=== PATIENT | female | born 1985 | race Caucasian/White ===

== ENCOUNTER 2019-06-03 11:37 | Emergency (ER) | payer MEDICAID, SELFPAY ==
[2019-06-03 11:38] VITALS: BP 116/71; PULSE 84; RESP 16; TEMP 36.8; O2SAT 99; BMI 23.3
--- NOTE | 2019-06-03 11:59 | ED.DCSUM_ITS ---
History of Present Illness <SinaParmjit - Last Filed: 06/03/19 13:43> Informant: Patient Onset: Yesterday Context: Sudden Onset Chronic pain exacerbated by: lifting Injury: Lifting Timing: Continuous Quality: Sharp Location: Thoracic Current Severity: Severe Maximum Severity: Severe Worsened by: improves with: Movement, Ambulation, Bending Relieved by: Nothing Associated Symptoms: - - Denies associated symptoms Narrative: 34-year-old female presents with thoracic back pain. Yesterday the patient was moving her bed lifted up felt sharp pain in her left thoracic back. It has been constant. Is worse with movement. Better with rest. Using icy hot without relief. It does not radiate. She has no numbness tingling or weakness of the upper or lower extremities. She is not lightheaded or dizzy. She denies trauma. She denies chest pain or shortness of breath. She denies abdominal pain nausea or vomiting. Urinating normally. Rest review of systems are negative. Denies IV drug abuse or constitutional symptoms. Prior similar symptoms: Yes, With Prior Back Pain Recent Illness/Hospitalization: No <Ruslan Tejada - Last Filed: 06/03/19 13:52> Chief Complaint: Back Past Medical History <AndinoParmjit - Last Filed: 06/03/19 13:43> Prior records reviewed: Yes Past Medical History: None Surgical History: no surgical history Lives: With Family Smoking Status: Former smoker Alcohol: Occasional Drugs: None <Ruslan Tejada - Last Filed: 06/03/19 13:52> - Allergies and Home Meds Allergies/Adverse Reactions: Allergies No Known Allergies Allergy (Verified 06/03/19 11:39) Primary Care Physician: Shiv Gilbert MD [Primary Care Provider] - Review of Systems All systems negative except as indicated General: Denies: Chills, Fever Musculoskeletal: Reports: Back pain <Ruslan Tejada - Last Filed: 06/03/19 13:52> Physical Exam Vital Signs/Narrative: Vital Signs Temp Pulse Resp BP Pulse Ox 06/03/19 13:32 63 18 114/78 100 06/03/19 11:38 98.2 F 84 16 116/71 99 <SinaParmjit - Last Filed: 06/03/19 13:43> Vital Signs/Narrative: Vital Signs Temp Pulse Resp BP Pulse Ox 06/03/19 11:38 98.2 F 84 16 116/71 99 Inital Vital Signs reviewed: Yes General: Well nourished, Well developed Head: Normocephalic, Atraumatic Eyes: Perrl, EOMI ENT: Moist mucous membranes Neck: Supple, Nontender Cardiovascular: Regular rate, Regular rhythm Respiratory: No distress, CTA bilaterally, Chest nontender Abdomen: Soft, Nontender, Nondistended, Normal bowel sounds, No masses Back: Normal Inspection, Paraspinal Tenderness, Negative SLR - Right, Negative SLR - Left. Negative for: Spinal tenderness, CVA tenderness Extremeties: Nontender, No edema Skin: Normal color, No rash Neuro: Alert, Oriented, Normal Strength, Normal Sensation, Normal DTR, Normal Gait <Ruslan Tejada - Last Filed: 06/03/19 13:52> Diagnostic/Tx/Re-eval - Medical Decision Making Evaluate this patient with our physician assistant professor of surgery. I went back to evaluate the patient she had left prior to being discharged. So I was unable to do a physical exam on this patient. <Parmjit Andino - Last Filed: 06/03/19 13:43> ED Disposition <Parmjit Andino - Last Filed: 06/03/19 13:43> <Ruslan Tejada - Last Filed: 06/03/19 13:52> - Plan for ED Patient: Disposition: Home or Assisted Living Diagnosis: Thoracic myofascial strain Instructions: BACK PAIN (Acute or Chronic) Prescriptions: cycloBENZAPRine HCl [Flexeril] 10 mg PO TID PRN #20 tab PRN Reason: Muscle Spasm Prescription Printed Naproxen [Naprosyn] 500 mg PO BID #20 tab Prescription Printed Referrals: Shiv Gilbert MD [Primary Care Provider] -
[2019-06-03] MEDS: Naproxen 500 MG Tablet PO (12:23)
[2019-06-03 13:32] VITALS: BP 114/78; PULSE 63; RESP 18; O2SAT 100
== END 2019-06-03 13:33 | disposition home or self-care (01) ==
PROVIDERS: Emergency Provider Physician Assistant Medical; Family Provider Family Medicine; PCP Family Medicine
DX: S29.012A Strain of muscle and tendon of back wall of thorax, initial encounter (principal); X58.XXXA Exposure to other specified factors, initial encounter; Z87.891 Personal history of nicotine dependence
CPT/HCPCS: 99283

== ENCOUNTER 2019-10-14 10:21 | Emergency (ER) | payer MEDICAID, SELFPAY ==
[2019-10-14 10:22] VITALS: BP 124/86; PULSE 73; RESP 17; TEMP 36.5; O2SAT 100; BMI 23.7
--- NOTE | 2019-10-14 10:59 | ED.VISSUMM ---
- ER Visit Summary Date of Service: 10/14/19 Chief Complaint: Head injury History of Present Illness: The patient is a 34 F who presents with a head injury that occurred yesterday. Patient states she hit her head on the trunk of her car. Patient thinks she had a brief loss of consciousness. Patient states her headache is worse today. Patient denies any paresthesias or weakness. Patient states her pain is over the frontal area of the scalp. Patient admits to nausea but denies any vomiting. Patient denies any visual changes. Patient denies any back pain. Patient admits to some mild pain on the left side of her neck. Physical Examination: Vital signs are stable. Patient is afebrile. Patient is in no acute distress. Cranial nerves II through XII are intact. Strength is 5/5 bilateral knee upper and lower extremities. There are no sensory deficits noted. Patient was able to heel and toe walk without difficulty. Pupils are equal, round, and reactive to light bilaterally. Extraocular muscles are intact. Funduscopic exam is benign. Oral mucosa is pink and moist. Neck is supple. Trachea is midline. There is no JVD. Heart was regular rate and rhythm. Lungs are clear and equal bilaterally. Abdomen is soft and nontender. Musculoskeletal exam revealed mild tenderness over the frontal area of the scalp. There is no bony crepitance or step-off. There is no edema or ecchymosis. Emergency Department Course and Treatment: Patient was advised that this is most likely a mild concussion. Patient was instructed to get plenty of rest. Patient was instructed drink plenty of fluids. Patient was instructed to take Tylenol or ibuprofen as needed for headaches. Patient was instructed to follow-up with a primary care physician in 5 to 7 days. Patient was given the name for the primary care physician hotel casino floorperson. Patient understood and was agreeable with the plan. All questions were answered. Disposition: Discharge home Impression: 1. Concussion This note was generated with [employer] dictation software. It may contain incorrect words, spelling, and punctuation that were not noted in review of the chart prior to signing ED Disposition - Plan for ED Patient: Disposition: Home or Assisted Living Diagnosis: Concussion Instructions: CONCUSSION, No Wake Up Referrals: Care Physician,No Primary [Primary Care Provider] - Mabel Cope MD [STAFF PHYSICIAN] - 5-7 Days
[2019-10-14] MEDS: Acetaminophen 325 MG Tablet 1000 MG PO (11:18)
== END 2019-10-14 11:21 | disposition home or self-care (01) ==
PROVIDERS: Emergency Provider Emergency Medicine
DX: S06.0X9A Concussion with loss of consciousness of unspecified duration, initial encounter (principal); W22.8XXA Striking against or struck by other objects, initial encounter; Y93.9 Activity, unspecified; Y92.89 Other specified places as the place of occurrence of the external cause; Y99.9 Unspecified external cause status
CPT/HCPCS: 99283

== ENCOUNTER 2020-01-24 09:12 | Emergency (ER) | payer MEDICAID, SELFPAY ==
[2020-01-24 09:13] VITALS: BP 142/91; PULSE 90; RESP 18; TEMP 35.7; O2SAT 92; BMI 24.7
--- NOTE | 2020-01-24 09:30 | EKG12_ITS ---
Test Reason : Blood Pressure : / mmHG Vent. Rate : 068 BPM Atrial Rate : 068 BPM P-R Int : 166 ms QRS Dur : 076 ms QT Int : 378 ms P-R-T Axes : 074 076 022 degrees QTc Int : 401 ms Normal sinus rhythm Nonspecific T wave abnormality Abnormal ECG Confirmed by RAYMOND MERRILL, LALI ([id number]), editor map ZAK BAKER ([id number]) on 01/29/2020 2:24:32 PM Referred By: NAVYA Confirmed By:MOSHE ANDRADE MD
--- NOTE | 2020-01-24 09:35 | RAD_ITS ---
STUDY: X-RAY CHEST REASON FOR EXAM: Female, 34 years old. Chest pain TECHNIQUE: Single AP portable view of the chest. COMPARISON: Comparison is made with prior examination dated November 24, 2015. FINDINGS: EKG electrodes are seen. The lungs are clear and expanded. Scattered calcified granulomas. There is no demonstrated pleural abnormality. Normal size heart. Normal mediastinum and tomasa. Normal visualized pulmonary arteries. Normal visualized aortic arch and descending thoracic aorta. Normal visualized thoracic spine. Normal visualized ribs, clavicles, and shoulders. There is no demonstrated abnormality of the visualized soft tissue structures of the upper abdomen. RAD/Chest 1 View (Portable) IMPRESSION: Normal x-ray examination of the chest. Electronically Signed: Jeet Olivas, at 10:09 EDT , Service support ,
--- NOTE | 2020-01-24 10:00 | ED.VIS.CHEST ---
History of Present Illness Informant: Patient Onset: Days - 4 days Activity at onset: Rest Timing: Continuous Quality: Sharp Location: Right Chest Current Severity: Moderate Maximum Severity: Moderate Worsened By: Movement of Arm, Movement of Torso, Palpation, Coughing Relieved By: Rest Associated Symptoms: Negative for: Nausea, Vomiting, Diaphoresis, Dyspnea, Cough, Fever, Lightheadedness, Acid Reflux, Palpitations Narrative: 34-year-old female who denies any significant past medical history presents to the emergency department with right-sided chest pain. Is been constant for 4 days. She states it started after she was playing around with her children and she has a sharp pain. It is worse with movement of her right upper extremity with palpation. She has not had shortness of breath cough hemoptysis, nausea vomiting, lightheadedness dizziness or diaphoresis. She has no risk factors for pulmonary embolism. She has not had trauma. She has been using Motrin and Tylenol with moderate improvement. Prior Similar Symptoms: No Recent Illness/Hospitalization: No CVD Risk Factors: Negative for: Hypertension, Diabetes, Hypercholesterolemia, Family History 1' </=55, Smoking PE Risk Factors: Negative for: Recent Travel/Surgery, Recenet Immobilization, Prior DVT or PE, Cancer, OCP + Smoking + >/=35 TAD Risk Factors: Negative for: Marfan's Syndrome, Hypertension, Family History <Ruslan Tejada - Last Filed: 01/24/20 10:18> <Hugh Witt - Last Filed: 01/24/20 10:27> Chief Complaint: Chest Other Past Medical History Prior records reviewed: Yes Past Medical History: None Surgical History: no surgical history Lives: With Family Smoking Status: Current some day smoker Alcohol: Occasional <Ruslan Tejada - Last Filed: 01/24/20 10:18> <Hugh Witt - Last Filed: 01/24/20 10:27> - Allergies and Home Meds Allergies/Adverse Reactions: Allergies No Known Allergies Allergy (Verified 01/24/20 09:15) Primary Care Physician: Mirtha Davis DO [STAFF PHYSICIAN] - Review of Systems All systems negative except as indicated General: Denies: Chills, Fever Eyes: Denies: Visual changes - bilaterally, Blurred Vision - bilaterally, Diplopia ENT: Denies: Bilateral ear pain, Rhinorrhea, Sore throat Cardiovascular: Reports: Chest pain. Denies: Palpitations, Heart racing Respiratory: Denies: Dyspnea, Cough, Sputum, Dyspnea on exertion, Orthopnea Gastrointestinal: Denies: Abdominal pain, Nausea, Vomiting, Diarrhea Genitourinary: Denies: Dysuria, Hematuria, Frequency Musculoskeletal: Denies: Myalgias, Arthralgias, Neck pain, Back pain, Swelling, Extremity Pain Skin: Denies: Rash, Abscess, Abrasions, Wounds Neurological: Denies: Headache, Weakness, Parasthesia, Numbness <Ruslan Tejada - Last Filed: 01/24/20 10:18> Physical Exam Vital Signs/Narrative: Vital Signs Temp Pulse Resp BP Pulse Ox 01/24/20 09:13 96.2 F L 90 18 142/91 H 92 Inital Vital Signs reviewed: Yes General: Well nourished, Well developed, No Acute Distress Head: Normocephalic, Atraumatic Eyes: Perrl, EOMI ENT: Moist mucous membranes Neck: Supple, Nontender, No lymphadenopathy, No JVD Cardiovascular: Regular rate, Regular rhythm, No murmurs Respiratory: No distress, CTA bilaterally, Chest tenderness Abdomen: Soft, Nontender, Nondistended, Normal bowel sounds, No masses Back: Nontender, Normal Inspection Extremities: Nontender, No edema Skin: Normal color, No rash, No Trauma Neurological: Alert, Oriented x3 Psychological: Normal affect, Normal Mood <Edith Tejadaony - Last Filed: 01/24/20 10:18> Vital Signs/Narrative: Vital Signs Temp Pulse Resp BP Pulse Ox 01/24/20 09:13 96.2 F L 90 18 142/91 H 92 <Hugh Witt - Last Filed: 01/24/20 10:27> Diagnostic/Tx/Re-eval Chest X-Ray - ED: 1 View, Read by ED Physician, Read by Radiologist, No Acute Disease - Rhythm Strip Rhythm Strip: Sinus Rhythm Rate: 68 Ectopy: None - EKG Initial EKG Interpretation: Sinus Rhythm, No Acute Injury Pattern Prior: Unchanged - Medical Decision Making On arrival EKG was normal sinus rhythm rate 68 bpm normal intervals no ectopy no ischemic changes are noted and it is unchanged from her previous EKG. Chest x-ray was performed this was unremarkable. Repeat evaluation vital signs are stable patient is not short of breath pulse ox is normal she is well-appearing she is PERC negative and at this time mutually agreed upon no further acute work-up or admission. This is likely musculoskeletal. I will prescribe Naprosyn and Flexeril. She will follow-up with her primary care physician. Again this is during the national pandemic from the coronavirus and she does not have any signs or symptoms that would warrant work-up or testing for this. <Ruslan Tejada - Last Filed: 01/24/20 10:18> - Medical Decision Making Patient presents with right-sided chest pain after activity. Physical exam reveals reproducible pain on the right side of the chest. EKG and chest x-ray are normal. This is likely musculoskeletal. She will be treated with NSAIDs and Flexeril. She will follow-up with her PCP. <Hugh Witt - Last Filed: 01/24/20 10:27> ED Disposition <Ruslan Tejada - Last Filed: 01/24/20 10:18> <Hugh Witt - Last Filed: 01/24/20 10:27> - Plan for ED Patient: Disposition: Home or Assisted Living Diagnosis: Chest pain Instructions: ED Chest Pain NonCardiac Prescriptions: Tamsulosin HCl [Flomax] 0.4 mg PO DAILY #7 cap Prescription Printed Naproxen [Naprosyn] 500 mg PO BID PRN #20 tab Prescription Printed Referrals: Mirtha Davis DO [STAFF PHYSICIAN] -
[2020-01-24 10:36] VITALS: BP 116/81; PULSE 62; RESP 17; O2SAT 100
== END 2020-01-24 10:37 | disposition home or self-care (01) ==
PROVIDERS: Emergency Provider Physician Assistant Medical
DX: R07.9 Chest pain, unspecified (principal); R05 Cough; F17.200 Nicotine dependence, unspecified, uncomplicated
CPT/HCPCS: 71045; 93005; 99282

== ENCOUNTER 2020-05-28 10:07 | Emergency (ER) | payer MEDICAID, SELFPAY ==
[2020-05-28 10:08] VITALS: BP 146/80; PULSE 60; RESP 18; TEMP 36.6; O2SAT 100; BMI 23.8
[2020-05-28 10:10] VITALS: BP 146/80; PULSE 60; RESP 18; TEMP 36.6; O2SAT 100
--- NOTE | 2020-05-28 10:28 | ED.DCSUM_ITS ---
- ER Visit Summary Date of Service: 05/28/20 Chief Complaint: 1 week history of intermittent diarrhea, intermittent nausea and intermittent headache. 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 She thinks the chemicals in the grass seed makes her making her ill. She states she is been get intermittent headaches associated with nausea but no vomiting and intermittent diarrhea over the last week. Denies any fever or chills. No significant abdominal pain. No dysuria. Physical Examination: Appearing young female no acute distress vital signs stable afebrile. She does not look septic or toxic. She does not look dehydrated. H EENT exam normal. Neck nontender no lymphadenopathy. No meningismus. Lungs clear to auscultation bilaterally. Heart regular rhythm no murmur. Abdomen soft nontender normal bowel sounds no peritoneal signs. Extremities moves all 4. No edema. Nontender. Full range of motion. 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 Dorsi plantarflexion intact. Neurologically she is awake alert. Normal speech. No facial droop. Fingertip to nose all within normal limits. NIH score is 0. Test Results: None Emergency Department Course and Treatment: Discussed with the patient explained to her that this could be a chemical exposure side effect versus viral illness. She needs no imaging or lab testing. I explained to her there was not a test I could do that would decipher whether this was a viral illness or a chemical exposure at work. Treatment Plan: Zofran for nausea. PRN [id number] Imodium for diarrhea as needed. Follow-up with her place of work to discuss with them possible side effects to the chemicals she is exposed to. Disposition: Discharge Impression: Acute nausea with diarrhea and cephalgia Viral syndrome Rule out chemical exposure side effects This note was generated with [employer] dictation software. It may contain incorrect words, spelling, and punctuation that were not noted in review of the chart prior to signing ED Disposition - Plan for ED Patient: Referrals: Care Physician,No Primary [Primary Care Provider] -
--- NOTE | 2020-05-28 10:30 | ED.DEP ---
ED Disposition - Plan for ED Patient: Disposition: Home or Assisted Living Instructions: ED Viral Syndrome Prescriptions: Ondansetron [Zofran Odt] 4 mg PO Q8H PRN PRN #10 tab PRN Reason: Nausea Prescription Printed Referrals: Shiv Doyle MD [STAFF PHYSICIAN] - 1 Week if not improving Additional Instructions: Plenty of fluids and rest Zofran as needed for nausea Imodium as needed if diarrhea continues. You can get this [id number]. Follow-up with your employer if the symptoms continue to see if they and you can work together on ways to protect you from any type of chemical exposure.
== END 2020-05-28 10:47 | disposition home or self-care (01) ==
LOC: ED 10:42
PROVIDERS: Emergency Provider Emergency Medicine
DX: B34.9 Viral infection, unspecified (principal); R51 Headache; R11.0 Nausea; R19.7 Diarrhea, unspecified; Z72.0 Tobacco use
CPT/HCPCS: 99282

== ENCOUNTER 2020-08-28 18:43 | Emergency (ER) | payer MEDICAID, SELFPAY ==
[2020-08-28 18:45] VITALS: BP 116/85; PULSE 95; RESP 16; TEMP 36.5; O2SAT 99; BMI 24.7
--- NOTE | 2020-08-28 19:24 | ED.DCSUM_ITS ---
History of Present Illness Chief Complaint: Female C/O Informant: Patient Narrative: Patient is a 35-year-old female who presents to the emergency department for left labia pain and swelling. Is been present over the past 3 to 4 days. She is never had this before in the past. She describes as a pressure sensation. Denies any vaginal bleeding or discharge. No urinary symptoms. She tried putting topical cream on it which did not give her any relief. She denies any systemic symptoms including any fever/chills. No abdominal pain or nausea/vomiting. No change in bowel habits. Past Medical History - Allergies and Home Meds Allergies/Adverse Reactions: Allergies No Known Allergies Allergy (Verified 08/28/20 18:45) Primary Care Physician: Emelyn Dillon MD [STAFF PHYSICIAN] - 2 Days Surgical History: no surgical history Smoking Status: Current some day smoker Review of Systems All systems negative except as indicated General: Denies: Chills, Fever Cardiovascular: Denies: Chest pain Respiratory: Denies: Dyspnea Gastrointestinal: Denies: Abdominal pain, Nausea, Vomiting, Diarrhea, Constipation Genitourinary: Denies: Dysuria, Hematuria, Frequency Musculoskeletal: Denies: Myalgias, Back pain Skin: Reports: Abscess. Denies: Rash Neurological: Denies: Headache, Weakness, Numbness Physical Exam Vital Signs/Narrative: Vital Signs Temp Pulse Resp BP Pulse Ox 08/28/20 18:45 97.7 F L 95 16 116/85 H 99 Inital Vital Signs reviewed: Yes General: Well nourished, Well developed Head: Normocephalic, Atraumatic Eyes: Perrl, EOMI ENT: Moist mucous membranes Neck: Supple, Nontender Cardiovascular: Regular rate, Regular rhythm Respiratory: No distress, CTA bilaterally Abdomen: Soft, Nontender : - - Chaperoned by nurse there is what appears to be a cyst versus abscess of the left labia. No overlying skin changes. This is very tender to palpation. Bedside ultrasound showed induration but no large fluid collection. Extremities: No edema Skin: Normal color, No rash Neurological: Alert, Oriented x3 Psychological: Normal affect, Normal Mood Diagnostic/Tx/Re-eval - Medical Decision Making Patient presents to the ED for swelling and pain of the left labia. There did appear to be a cyst versus abscess present. Will recommend warm compresses as there was no drainable fluid collection. Will place on antibiotics. She is given [employer] referral for close follow-up. Warning signs and symptoms for which to return to the ED are given. She understands and is agreeable this plan. Will discharge home in stable condition. All questions answered. ED Disposition - Plan for ED Patient: Disposition: Home or Assisted Living Diagnosis: Labial abscess Instructions: ED Abscess Antibiotic Treatment Only Prescriptions: Smz/Tmp Ds [Bactrim Ds] 1 tab PO BID #14 tab Prescription Printed Cephalexin [Keflex] 500 mg PO Q6 #40 cap Prescription Printed Referrals: Emelyn Dillon MD [STAFF PHYSICIAN] - 2 Days
== END 2020-08-28 19:32 | disposition home or self-care (01) ==
PROVIDERS: Emergency Provider Emergency Medicine
DX: N76.4 Abscess of vulva (principal)
CPT/HCPCS: 99282

== ENCOUNTER 2020-09-27 13:01 | Emergency (ER) | payer MEDICAID, SELFPAY ==
[2020-09-27 13:01] VITALS: BP 133/81; PULSE 65; RESP 11; TEMP 36.8; O2SAT 100; BMI 23.7
--- NOTE | 2020-09-27 13:38 | EKG12_ITS ---
Test Reason : CP Blood Pressure : / mmHG Vent. Rate : 067 BPM Atrial Rate : 067 BPM P-R Int : 176 ms QRS Dur : 084 ms QT Int : 402 ms P-R-T Axes : 052 067 026 degrees QTc Int : 424 ms Normal sinus rhythm Normal ECG Confirmed by DASH MERRILL, MITUL ([id number]), managing editor GISELA MORENO ([id number]) on 09/29/2020 1:31:13 PM Referred By: BB/ Confirmed By:MITUL BOWLING MD
--- NOTE | 2020-09-27 13:38 | RAD_ITS ---
STUDY: X-RAY CHEST REASON FOR EXAM: Female, 35 years old. SHORT OF BREATH, CHEST PAIN TECHNIQUE: Frontal view of the chest COMPARISON: To January 2020 FINDINGS: The lungs are clear and expanded. There is no demonstrated pleural abnormality. Normal size heart. Normal mediastinum and tomasa. Normal visualized pulmonary arteries. Normal visualized aortic arch and descending thoracic aorta. Normal visualized thoracic spine. Normal visualized ribs, clavicles, and shoulders. There is no demonstrated abnormality of the visualized soft tissue structures of the upper abdomen. RAD/Chest 1 View (Portable) IMPRESSION: Normal x-ray examination of the chest. Electronically Signed: Armand Modi, at 14:12 EST Tel , Service support ,
--- NOTE | 2020-09-27 13:39 | ED.DCSUM_ITS ---
- ER Visit Summary Date of Service: 09/27/20 Chief Complaint: Chest pain History of Present Illness: The patient is a 35 F presenting with chest pain. She states this started this morning around 6:30 AM. She went to work and had continuous pain throughout the day. Pain is left-sided. She describes it as a sharp pain. She states it is occasionally worsened when she breathes. She denies PE/DVT risk factors. She is a smoker. She is adopted and does not know her family history. She has chills with no fever. She denies cough. Denies other complaints. Physical Examination: Vitals are stable. Patient is afebrile. Alert no acute distress. HEENT exam is unremarkable. Neck is supple. Lungs are clear and equal bilaterally. Left chest wall tenderness with no crepitus Heart is regular rate and rhythm. Abdomen is soft nontender nondistended. Extremities are unremarkable. Skin is warm and dry. No focal neurologic deficit. Remainder of exam is unremarkable. Emergency Department Course and Treatment: Patient was given IV fluids, Toradol. EKG is sinus rhythm rate of 67 with no acute ischemic changes. Chest x-ray shows no acute process. CBC, chemistries unremarkable. D-dimer negative. Troponin is negative. hCG negative. On reevaluation, patient is feeling improved. She is given prescription for naproxen. She is advised to follow-up with her primary care physician. Advised return to ED if worsening complaints. Disposition: Discharge home Impression: Chest wall pain This note was generated with [employer] dictation software. It may contain incorrect words, spelling, and punctuation that were not noted in review of the chart prior to signing ED Disposition - Plan for ED Patient: Instructions: ED Chest Wall Pain, Costochondritis Prescriptions: Naproxen [Naprosyn] 500 mg PO BID PRN #20 tab Prescription Printed Referrals: Sagar Oconnor MD [Primary Care Provider] -
[2020-09-27] MEDS: Ketorolac 15 MG/ML Vial IV (13:51)
[2020-09-27 13:54] LABS: Absolute Lymphocyte Count 2.53 X10^3/uL (0.83-4.51); Absolute Neutrophil Count 4.5 X10^3/uL (2.0-7.7); Basophil# 0.05 X10^3/uL; Basophil% 0.7 % (0-1); Eosinophil# 0.15 X10^3/uL; Hematocrit 37.5 % (37-47); Hemoglobin 11.6 g/dL (12.0-15.0); Lymphocyte # 2.53 X10^3/ul (4.0); Lymphocyte % 32.9 % (19-41); Mean Corp Hgb Conc 30.9 g/dL (32-36); Mean Corpuscular Hgb 25.5 pg (27.0-32.0); Mean Corpuscular Volume 82.4 fL (81-99); Mean Platelet Vol. 10.5 fl (6.2-12.0); Monocyte# 0.39 X10^3/uL; Monocyte% 5.1 % (0-10); NRBC Flagged by Analyzer 0 % (0-5); Neutrophil # 4.53 X10^3/uL (2.7-7.7); Neutrophil % 58.9 % (47-70); Platelet Count 301 K/mm3 (150-450); RBC Distribution Width CV 13.7 % (11.6-14.6); RBC Distribution Width SD 40.7 fl (35.1-43.9); Red Blood Count 4.55 M/mm3 (4.2-5.4); White Blood Count 7.7 K/mm3 (4.4-11.0)
[2020-09-27 13:56] LABS: Internal QC Validated? YES +Cl - CLEAR BKGD; Pregnancy, Serum, hCG Quali. NEGATIVE Negative
[2020-09-27 14:01] LABS: D-Dimer Quantitative (DVT/PE) <= 0.27 FEU/ug/m (0.27-0.49)
[2020-09-27 14:04] LABS: Anion Gap 3 (5-15); BUN 10 mg/dL (7-18); BUN/Creat Ratio 14.4 RATIO (10-20); Calcium,Total 8.9 mg/dL (8.5-10.1); Chloride 109 mmol/L (98-107); EST Glomerular Filtration Rate 102 mL/min (>60); Est Glom Filt Rate - Afr Amer 123 mL/min (>60); Estimated Creatinine Clearance 88.72 ml/min; Glucose 74 mg/dL (74-106); Potassium 3.6 mmol/L (3.5-5.1); Sodium Level 140 mmol/L (136-145)
--- NOTE | 2020-09-27 14:39 | ED.DEP ---
ED Disposition - Plan for ED Patient: Instructions: ED Chest Wall Pain, Costochondritis Prescriptions: Naproxen [Naprosyn] 500 mg PO BID PRN #20 tab Prescription Printed Referrals: Sagar Oconnor MD [Primary Care Provider] -
[2020-09-27 14:51] VITALS: BP 110/75; PULSE 68; RESP 15; O2SAT 98
== END 2020-09-27 14:52 | disposition home or self-care (01) ==
LOC: ED 14:26
PROVIDERS: Emergency Provider Emergency Medicine; PCP Family Medicine
DX: R07.89 Other chest pain (principal)
CPT/HCPCS: 71045; 80048; 84484; 84703; 85025; 85379; 93005; 99284; J7030; A4216

== ENCOUNTER → 2020-09-30 08:10 | Outpatient (CLI) | payer MEDICAID, SELFPAY ==
[2020-09-27 13:01] VITALS: BMI 23.7
--- NOTE | 2020-09-30 08:12 | RAD_ITS ---
EXAMINATION: UPPER GI SERIES INDICATION: Female, 35 years proximal dysphasia. FLUOROSCOPY TIME (if supplied): (0:21) minutes/seconds TECHNIQUE: Radiographic and fluoroscopic images of the distal esophagus, stomach, and proximal small intestine were obtained following the oral ingestion of barium. COMPARISON: None. FINDINGS: There is no evidence for organomegaly, abnormal calcifications, or abnormal bowel gas pattern. The psoas margins and flank stripes are normal. The visualized osseous structures are normal. The mucosa of the esophagus, stomach and duodenum is normal in appearance without evidence for stricture, ulceration, mass or diverticulum. There is no evidence for hiatal hernia or gastroesophageal reflux. The patient ingested a 12 mm tablet of barium without any difficulty. RAD/Upper GI w/BA Swallow IMPRESSION: 1. Normal upper gastrointestinal study. Electronically Signed: Jeet Olivas, at 8:58 EST , Service support ,
== END ==
PROVIDERS: PCP Family Medicine; Referring Provider Family Medicine; Visit Provider Family Medicine
DX: R13.14 Dysphagia, pharyngoesophageal phase (principal)
CPT/HCPCS: 74246

== ENCOUNTER 2021-06-01 06:58 | Emergency (ER) | payer MEDICAID, SELFPAY ==
[2021-06-01 06:58] VITALS: BP 115/94; PULSE 77; RESP 16; TEMP 36.8; O2SAT 100; BMI 24.6
--- NOTE | 2021-06-01 07:09 | RAD_ITS ---
STUDY: X-RAY - LEFT FOOT CLINICAL: Left foot/ankle pain after injury on Tuesday. TECHNIQUE: 2 view(s) of the foot. COMPARISON: None. FINDINGS: Normal talus, calcaneus, and tarsal bones. Normal visualized subtalar, talonavicular, calcaneocuboid, tarsal and tarsometatarsal articulations. Normal metatarsi. Normal metatarsophalangeal joint of the great toe. Normal tibial and fibular sesamoid bones. Normal interphalangeal joint of the great toe. Normal phalanges of the great toe. Normal second through fifth metatarsophalangeal joints. Normal interphalangeal joints and phalanges of the lesser toes. There is an overlying splint. RAD/Foot min 3 Views IMPRESSION: Overlying splint without demonstrated left foot fracture. Electronically Signed: Naif Amaya MD at 7:43 EDT Tel , Service support ,
--- NOTE | 2021-06-01 07:09 | RAD_ITS ---
STUDY: X-RAY - LEFT ANKLE REASON FOR EXAM: Lateral left ankle pain, injury on Tuesday. TECHNIQUE: 3 view(s) of the ankle. COMPARISON: None. FINDINGS: Normal visualized distal tibia and fibula. Normal medial and lateral malleoli. Normal tibiotalar articulation and ankle mortise. Normal visualized talus and calcaneus. The visualized subtalar, talonavicular, calcaneocuboid and tarsal articulations are normal. There is an overlying splint. RAD/Ankle min 3 Views IMPRESSION: Overlying splint without demonstrated left ankle fracture. Electronically Signed: Naif Amaya MD at 7:44 EDT Tel , Service support ,
--- NOTE | 2021-06-01 07:11 | EDS_ITS ---
HPI History of Present Illness Chief Complaint: Lower Extremity Injury Informant: patient Narrative Narrative: Patient is a 36-year-old previously healthy female who presents to the emergency department for left foot and ankle pain. She states that she stepped in a hole 2 days ago. She has been having pain on the top of the foot and ankle since. She went to urgent care yesterday who was unable to do x-rays but they splinted the foot and told her to come to the emergency department. Patient has been in a splint and using crutches since then. She is also been taking ibuprofen's. She is still having pain. She has been able to put some weight on the foot but this does make her symptoms worse. She denies any pain going up the leg into the knee or hip. No other injury noted. [facility] Medical History Headache Home Medications naproxen [Naprosyn] 500 mg PO BID PRN #20 tab 06/01/21 [Rx Last Taken Unknown] Allergy/AdvReac Type Severity Reaction Status Date / Time No Known Allergies Allergy Verified 06/01/21 07:00 Surgical History Hx of section Social History Smoking Status: Current every day smoker tobacco type: cigarettes alcohol intake: never ROS ROS ED Constitutional Constitutional ED: Denies chills or fever(s) Eyes Eyes: Denies change in vision ENT ENT ED: Denies epistaxis Cardiovascular Cardiovascular: Denies chest pain Respiratory/Chest Respiratory/Chest: Denies cough or dyspnea Gastrointestinal Gastrointestinal: Denies abdominal pain, nausea or vomiting Musculoskeletal Musculoskeletal: Reports arthralgias; Denies back pain or neck pain Integumentary Denies rash Neurologic Neurologic: Denies dizziness, headache(s) or weakness EXAM Physical Exam Const Vital Signs: 06/01/21 06:58 Temperature 98.3 F Temperature Source Temporal Pulse Rate 77 Respiratory Rate 16 Blood Pressure 115/94 H Blood Pressure Mean 101 Pulse Ox 100 Oxygen Delivery Method Room Air Positive well nourished and well developed General Appearance ED: well developed and NAD HEENT Reports normocephalic, head/scalp atraumatic and moist mucous membranes Eyes PERRL and EOMs intact bilaterally Neck supple Resp normal respiratory effort and clear to auscultation bilaterally Auscultation: Negative for rales, rhonchi or wheezes Cardio regular rate, regular rhythm and no murmurs Back/Spine no CVA tenderness Extremity Extremity Narrative: Left foot in splint. Neurovascular intact. Able to move toes. Neuro oriented x3, CN's II-XII intact bilaterally and no sensory deficits noted Sensorium / Orientation: alert Motor Exam: strength 5/5 throughout Psych mental status grossly normal Skin no rashes or lesions noted MDM MDM MDM Narrative Medical decision making narrative: Patient presents to the emergency department for left foot and ankle pain. She was evaluated in urgent care yesterday. She was told to come get x-rays. Will obtain x-ray of the foot and ankle at this time. Patient's x-rays of the foot and ankle were negative for acute traumatic findings. Patient left in splint. Will recommend weightbearing as tolerated. Recommend symptomatic treatment with rice, Tylenol/ibuprofen. When she starts to have decreased pain she needs to take the foot out of the splint within the next 2 to 3 days. She needs to follow-up with her PCP. Return precautions are reviewed with her. She understands and is agreeable this plan. All questions are answered. Radiography Diagnostic Testing: Radiology Impression Ankle X-Ray 06/01/21 07:09 IMPRESSION: Overlying splint without demonstrated left ankle fracture. Electronically Signed: Naif Amaya MD at 7:44 EDT Tel , Service support , Foot X-Ray 06/01/21 07:09 IMPRESSION: Overlying splint without demonstrated left foot fracture. Electronically Signed: Naif Amaya MD at 7:43 EDT Tel , Service support , Discharge Plan Triage Chief Complaint: Lower Extremity Injury ED Provider: Arjun Gamboa Dx/Rx/DC Orders Clinical Impression: Foot sprain Instructions: ED Foot Sprain Prescriptions: New naproxen [Naprosyn] 500 mg tablet 500 mg PO BID PRN (Reason: pain) Qty: 20 RF: 0 Primary Care Provider: Care Physician,No Primary Referrals: Sagar Oconnor MD [NON-STAFF] - 1 Week if not improving Disposition Disposition: Home, Self Care Discharge Date/Time: 06/01/21 08:15
== END 2021-06-01 08:15 | disposition home or self-care (01) ==
LOC: ED 07:30
PROVIDERS: Emergency Provider Emergency Medicine
DX: S93.602A Unspecified sprain of left foot, initial encounter (principal); X50.9XXA Other and unspecified overexertion or strenuous movements or postures, initial encounter; Y93.9 Activity, unspecified; Y92.89 Other specified places as the place of occurrence of the external cause; Y99.9 Unspecified external cause status; F17.210 Nicotine dependence, cigarettes, uncomplicated; Z79.1 Long term (current) use of non-steroidal anti-inflammatories (NSAID)
CPT/HCPCS: 73610; 73630; 99282

== ENCOUNTER 2021-06-28 10:21 | Emergency (ER) | payer MEDICAID, SELFPAY ==
[2021-06-28 10:21] VITALS: BP 133/78; PULSE 68; RESP 18; TEMP 36.2; O2SAT 98; BMI 23.3
--- NOTE | 2021-06-28 10:30 | EX.ED.DYSGE1 ---
HPI History of Present Illness Chief Complaint: Nausea/Vomiting/Diarrhea Informant: patient Narrative Narrative: 36-year-old female presents to the emergency room out of concern for COVID-19. She states that her daughter had Covid last week and has subsequently recovered. She states that starting yesterday she began to have diarrhea with each meal. And she noted vomiting during the night and this morning. No fevers. No cough no shortness of breath no sore throat of her rhinorrhea. She does note a headache. PFSH PFSH Medical History Headache Home Medications naproxen [Naprosyn] 500 mg PO BID PRN #20 tab 06/01/21 [Rx Last Taken Unknown] ondansetron 4 mg PO Q6H PRN PRN #15 tab 06/28/21 [Rx Last Taken Unknown] Allergy/AdvReac Type Severity Reaction Status Date / Time No Known Allergies Allergy Verified 06/28/21 10:23 Surgical History Hx of section Social History Smoking Status: Current every day smoker tobacco type: cigarettes alcohol intake: never ROS ROS ED Constitutional Constitutional ED: Denies chills or weight loss Eyes Eyes: Denies change in vision or diplopia ENT ENT ED: Denies ear pain, rhinorrhea or sore throat Cardiovascular Cardiovascular: Denies chest pain, orthopnea, palpitations or racing heartbeat Respiratory/Chest Respiratory/Chest: Denies cough, dyspnea or orthopnea Gastrointestinal Gastrointestinal: Reports diarrhea, nausea and vomiting; Denies abdominal pain Genitourinary Genitourinary ED: Denies dysuria, hematuria or urinary frequency Musculoskeletal Musculoskeletal: Denies arthralgias or myalgias Integumentary Denies abscess or rash Neurologic Neurologic: Reports headache(s); Denies weakness Psychiatric Psychiatric: Denies anxiety, depression, suicidal ideation or suicidal thoughts Endocrine Endocrinology: Denies polydipsia, polyphagia or polyuria Allergic/Immunologic Allergic/Immunologic ED: Denies mouth swelling, tongue swelling or urticaria EXAM Physical Exam Const Vital Signs: 06/28/21 10:21 Temperature 97.2 F L Temperature Source Temporal Pulse Rate 68 Respiratory Rate 18 Blood Pressure 133/78 H Blood Pressure Mean 96 Pulse Ox 98 Oxygen Delivery Method Room Air Positive well nourished and well developed General Appearance ED: well developed HEENT Reports normocephalic, head/scalp atraumatic and moist mucous membranes Eyes PERRL and EOMs intact bilaterally Neck no lymphadenopathy, supple and no JVD Resp normal respiratory effort and clear to auscultation bilaterally Cardio regular rate, regular rhythm and no murmurs GI normal to inspection, nondistended, normoactive bowel sounds and non-tender Palpation: soft Back/Spine no CVA tenderness and normal ROM Extremity normal to inspection General Extremety ED: Negative for edema General Extremity: Negative for edema Neuro oriented x3 and CN's II-XII intact bilaterally Sensorium / Orientation: alert Motor Exam: strength 5/5 throughout Psych mental status grossly normal Mood & Affect: Negative for depressed or tearful Skin no rashes or lesions noted and no wounds MDM MDM MDM Narrative Medical decision making narrative: Covid PCR will be sent. Patient understands this would not be back before discharge. I will write for Zofran for nausea Imodium as needed for diarrhea. Return if worsening or concerns Discharge Plan Triage Chief Complaint: Nausea/Vomiting/Diarrhea ED Provider: Cruz Sherwood Dx/Rx/DC Orders Clinical Impression: Nausea, vomiting and diarrhea Instructions: ED Vomiting and Diarrhea ... Prescriptions: New ondansetron [ondansetron] 4 MG tablet 4 mg PO Q6H PRN PRN (Reason: Nausea) Qty: 15 RF: 0 No Action naproxen [Naprosyn] 500 mg tablet 500 mg PO BID PRN (Reason: pain) Qty: 20 RF: 0 Primary Care Provider: Care Physician,No Primary Referrals: Lenny Pepe DO [NON-STAFF] - As Needed (for primary care) Care Physician,No Primary [Primary Care Provider] - Disposition Disposition: Home, Self Care
== END 2021-06-28 10:46 | disposition home or self-care (01) ==
LOC: ED 10:39
PROVIDERS: Emergency Provider Emergency Medicine; PCP Nurse Practitioner Family
DX: R11.2 Nausea with vomiting, unspecified (principal); R19.7 Diarrhea, unspecified; F17.210 Nicotine dependence, cigarettes, uncomplicated; R51.9 Headache, unspecified; Z79.1 Long term (current) use of non-steroidal anti-inflammatories (NSAID)
CPT/HCPCS: 87426; 99282

== ENCOUNTER 2022-04-26 09:33 | Emergency (ER) | payer MEDICAID, SELFPAY ==
[2022-04-26 09:34] VITALS: BP 123/91; PULSE 90; RESP 16; TEMP 36.6; O2SAT 100; BMI 21.9
--- NOTE | 2022-04-26 09:54 | EDS_ITS ---
HPI History of Present Illness Chief Complaint: Back Narrative Narrative: 37-year-old female presenting with right upper back and right rib pain. This started yesterday when she was at work. She denies any injury that she knows of. She states is worse with twisting and moving. The pain is better with rest. She is tried ibuprofen and is not getting much relief. She does not have shortness of breath or cough. No fever or chills. PFSH PFS Medical History Headache Home Medications cyclobenzaprine 10 mg tablet 10 mg PO BID PRN muscle spasm #20 tabs 04/26/22 [Rx Last Taken Unknown] naproxen 500 mg tablet (Naprosyn) 500 mg PO BID PRN pain #20 tabs 04/26/22 [Rx Last Taken Unknown] Allergy/AdvReac Type Severity Reaction Status Date / Time No Known Allergies Allergy Verified 04/26/22 09:36 Surgical History Hx of section Social History Smoking Status: Current every day smoker tobacco type: cigarettes alcohol intake: never ROS ROS ED Constitutional Constitutional ED: Denies chills or fever(s) Eyes Eyes: Denies blurry vision or change in vision ENT ENT ED: Denies rhinorrhea or sore throat Cardiovascular Cardiovascular: Reports other Details: Right rib pain Respiratory/Chest Respiratory/Chest: Denies dyspnea or dyspnea on exertion Gastrointestinal Gastrointestinal: Denies abdominal pain or constipation Genitourinary Genitourinary ED: Denies dysuria or hematuria Musculoskeletal Musculoskeletal: Reports back pain Integumentary Denies abscess Neurologic Neurologic: Denies headache(s) or paresthesias Psychiatric Psychiatric: Denies anxiety or depression EXAM Physical Exam Const Vital Signs: 04/26/22 09:34 Temperature 97.8 F Temperature Source Temporal Pulse Rate 90 Respiratory Rate 16 Blood Pressure 123/91 H Blood Pressure Mean 101 Pulse Ox 100 Oxygen Delivery Method Room Air Positive well nourished General Appearance ED: NAD; Negative for pallor HEENT Reports moist mucous membranes Eyes PERRL and EOMs intact bilaterally Chest Wall Chest Narrative: Tenderness palpation over the right posterior ribs and right ribs in the midaxillary line. No crepitance, deformity, bruising, rash. Equal symmetric breath sounds or chest wall rise. Pain is approximately level of the fourth rib. Resp normal respiratory effort Effort and Inspection: pain with movement Auscultation: Negative for rales, rhonchi or wheezes Cardio regular rate and regular rhythm GI normal to inspection, nondistended, normoactive bowel sounds Extremity normal to inspection and no clubbing, cyanosis or edema Neuro oriented x3 and no sensory deficits noted Sensorium / Orientation: alert Motor Exam: strength 5/5 throughout Psych mental status grossly normal Skin General Skin Exam: Negative for jaundice or pallor MDM MDM MDM Narrative Medical decision making narrative: Patient presenting with right rib pain and back pain. Patient was medicated with Naprosyn and Norflex. I been a right rib series which on my interpretation shows no acute cardiopulmonary process and the ribs do not appear to have any fracture. The radiologist agree. Patient counseled she likely has a muscle strain she will need to stretch, ice, rest. She is going to be given a prescription for Flexeril Naprosyn for home. Return precautions discussed. Impression: #1 thoracic strain Radiography Diagnostic Testing: Clinical Impression(s) from Imaging Studies Ribs w/Chest X-Ray 04/26/22 10:15 IMPRESSION: RIBS: Normal x-ray examination of the ribs. CHEST: Normal x-ray examination of the chest. Electronically Signed: Ray Heart MD at 10:58 EDT Reading Location ID and State: [address] [place] [address] , Service support , Discharge Plan Triage Chief Complaint: Back ED Provider: Mono Leigh Dx/Rx/DC Orders Instructions: ED Back Spasm, No Trauma Prescriptions: New naproxen [Naprosyn] 500 mg tablet 500 mg PO BID PRN (Reason: pain) Qty: 20 0RF cyclobenzaprine 10 mg tablet 10 mg PO BID PRN (Reason: muscle spasm) Qty: 20 0RF Primary Care Provider: Kaela Osorio NP Referrals: Kaela Osorio NP, [employer] [Primary Care Provider] - Disposition Disposition: Home, Self Care
[2022-04-26] MEDS: Naproxen 500 MG Tablet PO (10:04)
[2022-04-26] MEDS: Orphenadrine 100 MG Tablet PO (10:04)
[2022-04-26] MEDS: Lidocaine 5% Patch 1 PATCH TOPICAL (10:04)
--- NOTE | 2022-04-26 10:15 | RAD_ITS ---
STUDY: X-RAY - UNILATERAL RIBS ( RIGHT ) WITH CHEST REASON FOR EXAM: Female, 37 years old. RIGHT MID ANTERIOR, POSTERIOR AND AXILLARY RIB PAIN SINCE YESTERDAY, NKI TECHNIQUE - RIBS: 3 view(s) of the ribs. TECHNIQUE - CHEST: Single PA view of the chest. COMPARISON: September 27, 2020 FINDINGS - RIBS: Normal visualized ribs without a demonstrated fracture. No pneumothorax is seen. FINDINGS - CHEST: The lungs are clear and expanded. There is no demonstrated pleural abnormality. Normal size heart. Normal mediastinum and tomasa. Normal visualized pulmonary arteries. Normal visualized aortic arch and descending thoracic aorta. Normal visualized thoracic spine. Normal visualized ribs, clavicles, and shoulders. There is no demonstrated abnormality of the visualized soft tissue structures of the upper abdomen. RAD/Ribs Uni Min 3V w/PA Chest IMPRESSION: RIBS: Normal x-ray examination of the ribs. CHEST: Normal x-ray examination of the chest. Electronically Signed: Ray Heart MD at 10:58 EDT ,
== END 2022-04-26 11:23 | disposition home or self-care (01) ==
PROVIDERS: Emergency Provider Student in an Organized Health Care Education/Training Program; PCP Nurse Practitioner Family; Visit Provider Student in an Organized Health Care Education/Training Program
DX: S29.019A Strain of muscle and tendon of unspecified wall of thorax, initial encounter (principal); F17.210 Nicotine dependence, cigarettes, uncomplicated; X58.XXXA Exposure to other specified factors, initial encounter; Y93.9 Activity, unspecified; Y99.0 Civilian activity done for income or pay
CPT/HCPCS: 71101; 99283

== ENCOUNTER 2022-11-23 12:45 | Emergency (ER) | payer MEDICAID, SELFPAY ==
[2022-11-23 12:46] VITALS: BP 132/102; PULSE 97; RESP 16; TEMP 37.5; O2SAT 100; BMI 22.9
[2022-11-23] MEDS: Ibuprofen 600 MG Tablet PO (13:36)
[2022-11-23] MEDS: Acetaminophen 325 MG Tablet 650 MG PO (13:36)
[2022-11-23 13:50] LABS: Bacteria 0 SEEN /hpf (None Seen); Mucous, Urine 0 SEEN /hpf (<or=2+); Red Blood Cells-Urine 0 SEEN /hpf (0-5); White Blood Cells 0 SEEN /hpf (0-5)
[2022-11-23 13:53] LABS: Color, Urine Yellow (Yellow); Glucose, Dipstick Normal (Normal); Ketone-Dipstick Negative (Negative); Leukocyte Esterase-Dipstick Negative /ul (Negative); Nitrite-Dipstick Negative (Negative); Occult Blood-Urine 10 /ul (Negative); Protein-Dipstick Negative (Negative); Specific Gravity, Urine 1.015 (1.002-1.030); Urine Bilirubin Dipstick Negative (Negative); Urine Clarity Clear (Clear); Urine Urobilinogen Normal (Normal)
[2022-11-23 14:01] LABS: Internal QC Validated? YES +Cl - CLEAR BKGD; Pregnancy, Urine Negative Negative; Squamous Epithelial Cells - UA 0-5 SEEN /hpf (5-10)
[2022-11-23 15:00] VITALS: BP 124/78; PULSE 78; RESP 16; O2SAT 100
--- NOTE | 2022-11-23 15:34 | EDS_ITS ---
HPI History of Present Illness Chief Complaint: General Illness Informant: patient Narrative Narrative: Patient is a 37 year old female with no significant past medical history presenting with low back pain, stomach pain, buttocks pain rating to her groin, nausea and headache. States she felt hot this morning. Denies any urinary symptoms. No concern for and states she just got off her last menstrual period. She has had a mild cough with mucus production and sore throat. She had to right ear hurts little bit. She initially denies any sick contacts but then her son checks in for fever and flulike symptoms. No other complaints at this time. Has been sleeping more today. No medications taken prior to arrival. [facility] Medical History Headache Home Medications cyclobenzaprine 10 mg tablet 10 mg PO BID PRN muscle spasm #20 tabs 04/26/22 [Rx Last Taken Unknown] lidocaine 5 % topical patch (Lidoderm) 1 patch topical DAILY #15 ea 04/26/22 [Rx Last Taken Unknown] naproxen 500 mg tablet (Naprosyn) 500 mg PO BID PRN pain #20 tabs 04/26/22 [Rx Last Taken Unknown] ibuprofen 600 mg tablet 600 mg PO Q6H PRN fever or pain #20 tabs 11/23/22 [Rx Last Taken Unknown] ondansetron HCl 4 mg tablet 4 mg PO Q6H PRN nausea and vomiting #14 tabs 11/23/22 [Rx Last Taken Unknown] Allergy/AdvReac Type Severity Reaction Status Date / Time No Known Allergies Allergy Verified 11/23/22 12:48 Surgical History Hx of section Social History Smoking Status: Current every day smoker tobacco type: cigarettes alcohol intake: never ROS ROS ED Constitutional Constitutional ED: Reports chills, fever(s) and subjective Eyes Eyes: Denies change in vision or diplopia ENT ENT ED: Reports ear pain right and rhinorrhea Cardiovascular Cardiovascular: Reports chest pain Respiratory/Chest Respiratory/Chest: Reports cough; Denies dyspnea Gastrointestinal Gastrointestinal: Reports abdominal pain and nausea; Denies constipation, diarrhea or vomiting Genitourinary Genitourinary ED: Denies dysuria, hematuria or urinary frequency Musculoskeletal Musculoskeletal: Reports back pain and myalgias; Denies neck pain Integumentary Denies rash Neurologic Neurologic: Reports headache(s); Denies weakness Psychiatric Psychiatric: Denies anxiety EXAM Physical Exam Const Vital Signs: 11/23/22 12:46 11/23/22 13:33 11/23/22 15:00 Temperature 99.5 F H Temperature Source Temporal Pulse Rate 97 78 Respiratory Rate 16 16 Respiratory Pattern Normal Blood Pressure 132/102 H 124/78 H Blood Pressure Mean 112 93 Pulse Ox 100 100 Oxygen Delivery Method Room Air Room Air Positive well nourished and well developed General Appearance ED: well developed and NAD HEENT Reports TM's clear and moist mucous membranes HEENT Narrative: mild nasal congestion present Tympanic Membrane ED: Yes TM's clear Eyes PERRL and EOMs intact bilaterally Neck no lymphadenopathy and supple Chest Wall inspection of chest normal Resp normal respiratory effort and clear to auscultation bilaterally Cardio regular rate, regular rhythm and no murmurs GI normal to inspection, nondistended, normoactive bowel sounds and non-tender Extremity normal to inspection General Extremety ED: Negative for edema or tenderness General Extremity: Negative for edema Neuro oriented x3 Sensorium / Orientation: alert Motor Exam: Negative for general weakness Psych mental status grossly normal Mood & Affect: anxious Skin no rashes or lesions noted MDM MDM MDM Narrative Medical decision making narrative: Patient is evaluated for body aches, nausea and flulike symptoms. Vital signs are normal however temperature is 99.5. Patient is given Tylenol and ibuprofen in the ER. Urinalysis is normal and her test is negative. COVID test is positive. I suspect COVID infection is what causing her constellation of symptoms. She is high percent on room air and has no respiratory symptoms and normal respiratory exam. I do not think she requires further work-up for COVID infection. She is counseled to alternate ibuprofen and Tylenol and given symptomatic treatment. Is given a prescription for Zofran as well as Motrin 600 mg. Patient verbalized agreement understand this plan. Discharged home in stable condition. Lab Data Attestation: I reviewed the patient's lab results. Labs: Laboratory Results - last 24 hr 11/23/22 13:35 Urine Color Yellow Urine Clarity Clear Urine pH 6.0 Ur Specific [place] 1.015 Urine Protein Negative Urine Glucose (UA) Normal Urine Ketones Negative Urine Occult Blood 10 H Urine Nitrite Negative Urine Bilirubin Negative Urine Urobilinogen Normal Ur Leukocyte Esterase Negative Urine RBC 0 SEEN Urine WBC 0 SEEN Ur Squamous Epith Cells 0-5 SEEN Urine Bacteria 0 SEEN Urine Mucus 0 SEEN Urine Test Negative Discharge Plan Triage Chief Complaint: General Illness ED Provider: Tamica Puentes Dx/Rx/DC Orders Clinical Impression: COVID-19, Myalgia Prescriptions: New ibuprofen 600 mg tablet 600 mg PO Q6H PRN (Reason: fever or pain) Qty: 20 0RF ondansetron HCl 4 mg tablet 4 mg PO Q6H PRN (Reason: nausea and vomiting) Qty: 14 0RF No Action naproxen [Naprosyn] 500 mg tablet 500 mg PO BID PRN (Reason: pain) Qty: 20 0RF cyclobenzaprine 10 mg tablet 10 mg PO BID PRN (Reason: muscle spasm) Qty: 20 0RF lidocaine [Lidoderm] 5 % adhesive patch,medicated 1 patch topical DAILY Qty: 15 0RF Rx Instructions: leave on most painful area for up to 12 hrs Primary Care Provider: Kaela Osorio NP Referrals: Kaela Osorio NP, [employer] [Primary Care Provider] - Activity Restrictions/Additional Instructions: Drink lots of fluids. Alternate ibuprofen and Tylenol. Turn the ER if you develop difficulty breathing or progression/worsening of your symptoms. Disposition Disposition: Home, Self Care
[2022-11-23 15:59] VITALS: BP 134/78; PULSE 78; RESP 14; TEMP 36.6; O2SAT 99
== END 2022-11-23 16:04 | disposition home or self-care (01) ==
PROVIDERS: Emergency Provider Emergency Medicine; PCP Nurse Practitioner Family; Visit Provider Emergency Medicine
DX: U07.1 COVID-19 (principal); H92.01 Otalgia, right ear; M79.10 Myalgia, unspecified site; F17.210 Nicotine dependence, cigarettes, uncomplicated
CPT/HCPCS: 81001; 81025; 87428; 99283

== ENCOUNTER 2023-08-23 16:17 | Emergency (ER) | payer MEDICAID, SELFPAY ==
[2023-08-23 16:19] VITALS: BP 122/86; PULSE 67; RESP 18; TEMP 36.6; O2SAT 100; BMI 35.3
--- NOTE | 2023-08-23 16:41 | EDS_ITS ---
HPI History of Present Illness Chief Complaint: Other, Pain/Inj Detail of Chief Complaint: Sore in mouth Informant: patient Onset/Context/Timing Onset: Yesterday Context: Gradual Onset Narrative Narrative: Patient presents secondary to a sore in her mouth. She states she woke yesterday morning with a small area that was tender and it is increased in size. She went to urgent care yesterday and they prescribed her Keflex. She has also been taking Tylenol, ibuprofen, and Orajel without much improvement. She called [facility] for dental care and has an appointment to be seen next week. She has had subjective fever but did not measure anything. She does not have any dental pain. [facility] Medical History Headache Home Medications cyclobenzaprine 10 mg tablet 10 mg PO BID PRN muscle spasm #20 tabs 04/26/22 [Rx Last Taken Unknown] lidocaine 5 % topical patch (Lidoderm) 1 patch topical DAILY #15 ea 04/26/22 [Rx Last Taken Unknown] naproxen 500 mg tablet (Naprosyn) 500 mg PO BID PRN pain #20 tabs 04/26/22 [Rx Last Taken Unknown] ibuprofen 600 mg tablet 600 mg PO Q6H PRN fever or pain #20 tabs 11/23/22 [Rx Last Taken Unknown] ondansetron HCl 4 mg tablet 4 mg PO Q6H PRN nausea and vomiting #14 tabs 11/23/22 [Rx Last Taken Unknown] clindamycin HCl 150 mg capsule 300 mg (2 x 150 mg) PO 4X/DAY #80 CAPSULES 08/23/23 [Rx Last Taken Unknown] tramadol 50 mg tablet 50 mg PO Q6H PRN pain #14 tabs 08/23/23 [Rx Last Taken Unknown] Allergy/AdvReac Type Severity Reaction Status Date / Time No Known Allergies Allergy Verified 08/23/23 16:19 Surgical History Hx of section Social History Smoking Status: Current every day smoker tobacco type: cigarettes alcohol intake: never ROS ROS ED Constitutional Constitutional ED: Reports fever(s) and subjective; Denies chills Eyes Eyes: Denies change in vision or discharge from eye(s) ENT ENT ED: Reports other Details: Sore on roof of mouth ; Denies discharge from eye(s), rhinorrhea or sore throat Cardiovascular Cardiovascular: Denies chest pain Respiratory/Chest Respiratory/Chest: Denies cough or dyspnea Gastrointestinal Gastrointestinal: Denies abdominal pain, nausea or vomiting Musculoskeletal Musculoskeletal: Denies back pain or extremity pain Integumentary Denies Abrasions or rash Allergic/Immunologic Allergic/Immunologic ED: Denies lip swelling or urticaria EXAM Physical Exam Const Vital Signs: 08/23/23 16:19 08/23/23 16:17 Temperature 97.9 F Temperature Source Temporal Pulse Rate 67 Respiratory Rate 18 Respiratory Effort Normal Respiratory Pattern Normal Blood Pressure 122/86 H Blood Pressure Mean 98 Pulse Ox 100 Oxygen Delivery Method Room Air Positive well nourished and well developed General Appearance ED: well developed HEENT Reports TM's clear and moist mucous membranes HEENT Narrative: Small focal area of swelling measuring approximately 1/2 cm medial to her right maxillary second molar. Tooth itself is not tender. No significant overlying skin changes. Posterior pharynx examination is unremarkable. Tympanic Membrane ED: Yes TM's clear Eyes PERRL and EOMs intact bilaterally Chest Wall inspection of chest normal and palpation of chest normal Resp normal respiratory effort and clear to auscultation bilaterally Cardio regular rate and regular rhythm GI non-tender Palpation: soft Extremity normal to inspection Neuro oriented x3 and no sensory deficits noted Motor Exam: strength 5/5 throughout Psych mental status grossly normal Skin no rashes or lesions noted MDM MDM MDM Narrative Medical decision making narrative: Patient has what appears to be a soft tissue abscess on the roof of her mouth. I will switch her to clindamycin for better coverage of the oral bacteria. I will also write her a short course of tramadol to help with pain. She is to follow-up with her dentist next week. Discharge Plan Triage Chief Complaint: Other, Pain/Inj ED Provider: Olya Haywood Dx/Rx/DC Orders Clinical Impression: Abscess Instructions: ED Abscess Antibiotic Treatment Only Prescriptions: New clindamycin HCl 150 mg capsule 300 mg PO 4X/DAY Qty: 80 0RF tramadol 50 mg tablet 50 mg PO Q6H PRN (Reason: pain) Qty: 14 0RF No Action naproxen [Naprosyn] 500 mg tablet 500 mg PO BID PRN (Reason: pain) Qty: 20 0RF cyclobenzaprine 10 mg tablet 10 mg PO BID PRN (Reason: muscle spasm) Qty: 20 0RF lidocaine [Lidoderm] 5 % adhesive patch,medicated 1 patch topical DAILY Qty: 15 0RF Rx Instructions: leave on most painful area for up to 12 hrs ibuprofen 600 mg tablet 600 mg PO Q6H PRN (Reason: fever or pain) Qty: 20 0RF ondansetron HCl 4 mg tablet 4 mg PO Q6H PRN (Reason: nausea and vomiting) Qty: 14 0RF Primary Care Provider: Kaela Osorio NP Referrals: Kaela Osorio NP, [employer] [Primary Care Provider] - Activity Restrictions/Additional Instructions: As discussed, please take the clindamycin I prescribed instead of the cephalexin (Keflex) that urgent care gave you. You can take the tramadol written today to help with pain. You could also take ibuprofen and Tylenol with this. Please follow-up with your dentist next week as discussed. Disposition Disposition: Home, Self Care
[2023-08-23 16:54] VITALS: BP 118/76; PULSE 64; RESP 14; TEMP 36.4; O2SAT 99
== END 2023-08-23 16:54 | disposition home or self-care (01) ==
LOC: ED 16:47
PROVIDERS: Emergency Provider Emergency Medicine; Visit Provider Emergency Medicine
DX: L02.91 Cutaneous abscess, unspecified (principal); F17.210 Nicotine dependence, cigarettes, uncomplicated
CPT/HCPCS: 99282

== ENCOUNTER 2024-06-29 09:39 | Emergency (ER) | payer MEDICAID, SELFPAY ==
[2024-06-29 09:40] VITALS: BP 114/83; PULSE 89; RESP 16; TEMP 36.5; O2SAT 97; BMI 23.0
--- NOTE | 2024-06-29 10:14 | EX.ED.DYSGE1 ---
HPI History of Present Illness Chief Complaint: General Illness Narrative Narrative: 39-year-old female who denies significant past medical history presents with multiple somatic complaints, symptoms of upper respiratory infection, and bodyaches. She relates history that for the last 4 days or so she has had diarrhea. Yesterday she began having bodyaches. She complains that she has sore throat, earache, and fever. She has been taking Tylenol without relief. She has vomited 4 times within the last 24 hours without any blood in her emesis. She states her whole body hurts and is achy. She is unable to keep food down. She recently got off her menses. No exacerbating or alleviating factors. [facility] Medical History Headache Home Medications ?Medication ?Instructions ?Recorded ?Last Taken ?Type ondansetron 4 mg disintegrating 4 mg PO Q6H PRN nausea and 06/29/24 Unknown Rx tablet vomiting #15 tabs Allergy/AdvReac Type Severity Reaction Status Date / Time No Known Allergies Allergy Verified 06/29/24 09:40 Surgical History Hx of section Social History Smoking Status: Current every day smoker tobacco type: cigarettes alcohol intake: never ROS ROS ED ROS Narrative Constitutional: Positive fever, no chills. HEENT: No sore throat. No neck pain. No loss of vision. Positive rhinorrhea. Cardiovascular: No chest pain. No palpitations. No pedal edema. Respiratory: Occasional cough, no shortness of breath. Abdominal: Positive abdominal pain. Positive nausea, vomiting, and diarrhea. Genitourinary: No dysuria. No hematuria. Musculoskeletal: Multiple myalgias. No arthralgias. Complains of whole body pain. Neurologic: No headaches. No dizziness. No lightheadedness. Skin: No rash. No change in color. Psychiatric: No depression. No anxiety. EXAM Physical Exam Narrative Exam Narrative: Afebrile. Vital signs noted. Nontoxic-appearing. HEENT: Normocephalic. Atraumatic. PERRL, EOMI. Neck soft and supple. No point tenderness or step off. Positive nasal congestion and rhinorrhea. Mild pharyngeal erythema. No meningismus. No tonsillar exudate or pharyngeal exudate. Cardiovascular: Regular rate and rhythm. No murmurs, rubs, or gallops appreciated. Respiratory: No tachypnea. Lungs clear to auscultation bilaterally. Gastrointestinal: Abdomen soft, nontender, with normoactive bowel sounds. No rebound or guarding. Neurological: Awake. Alert. Nonfocal, nonlateralizing. Skin: No rash. Normal color. No pallor. Musculoskeletal: No pedal edema. Full range of motion extremities. Const Vital Signs: 06/29/24 09:40 06/29/24 09:56 06/29/24 10:28 Temperature 97.7 F L 98.9 F Temperature Source Temporal Oral Pulse Rate 89 78 Respiratory Rate 16 16 Respiratory Effort Normal Non-Labored Respiratory Pattern Normal Blood Pressure 114/83 H 115/80 Blood Pressure Mean 93 91 Pulse Ox 97 100 Oxygen Delivery Method Room Air Room Air 06/29/24 11:15 Temperature Temperature Source Pulse Rate 72 Respiratory Rate 16 Respiratory Effort Respiratory Pattern Blood Pressure 101/58 L Blood Pressure Mean 72 Pulse Ox 99 Oxygen Delivery Method Room Air MDM MDM MDM Narrative Medical decision making narrative: Differential diagnosis includes but not limited to viral syndrome versus gastroenteritis versus dehydration. Comprehensive workup was pursued. Will check her electrolytes to see if she is dehydrated along with a lipase, but I do not feel her clinical examination merits any CT imaging of the abdomen and pelvis. I reviewed her laboratory work and she has normal white count of 5.6, hemoglobin 11.1 with hematocrit 34.1, platelet count normal at 236. Sodium slightly low 134, but she was bolused normal saline 1 L intravenously, BUN low at 6 with creatinine normal at 0.71, AST low at 9 which I think is nonspecific, normal ALT and alk phos. Lipase is normal at 24 so I doubt pancreatitis. Serum test is negative. Her respiratory swab was positive for COVID-19. Upon repeat examination prior to discharge, she states she was feeling mildly improved. She will take [id number] medications to treat will be symptomatic. I did write her a prescription for Zofran at her request. She was also given a note to be off work for the next 2 days. I feel she can be discharged safely home with follow-up. Return instructions to the emergency department reviewed. Disposition is discharged home in stable condition. History & Record Review Discussion w/independent historian: Patient Additional record(s) reviewed:: Prior ED visit Lab Data Attestation: I reviewed the patient's lab results. Labs: Laboratory Results - last 24 hr 06/29/24 10:23 WBC 5.6 RBC 4.32 Hgb 11.1 L Hct 34.1 L MCV 78.9 L MCH 25.7 L MCHC 32.6 RDW Std Deviation 37.7 RDW Coeff of Jayme 13.1 Plt Count 236 MPV 9.4 Immature Gran % (Auto) 0.400 Neut % (Auto) 77.0 H Lymph % (Auto) 12.6 L [place] % (Auto) 9.3 Eos % (Auto) 0.2 Baso % (Auto) 0.5 Absolute Neuts (auto) 4.3 Absolute Lymphs (auto) 0.71 L Nucleated RBC % 0 Sodium 134 L Potassium 3.5 Chloride 104 Carbon Dioxide 23.0 Anion Gap 7 BUN 6 L Creatinine 0.71 Estim Creat Clear Calc 84.14 Est GFR (MDRD) Af Amer 117 Est GFR (MDRD) Non-Af 97 BUN/Creatinine Ratio 8.4 L Glucose 93 Calcium 9.6 Total Bilirubin 1.00 AST 9 L ALT 15 Alkaline Phosphatase 55 Total Protein 7.2 Albumin 3.7 Globulin 3.5 Albumin/Globulin Ratio 1.1 Lipase 24 Serum , Qual NEGATIVE Discharge Plan Triage Chief Complaint: General Illness ED Provider: Remington Chacko Dx/Rx/DC Orders Clinical Impression: Nausea, vomiting and diarrhea, COVID-19 Instructions: Coronavirus Disease 2019 (COVID-19): Caring for Yourself or Others, ED Diet Vomiting Diarrhea Prescriptions: New ondansetron 4 mg tablet,disintegrating 4 mg PO Q6H PRN (Reason: nausea and vomiting) Qty: 15 0RF Stand Alone Forms: ED Work / School Excuse Primary Care Provider: Care Physician,No Primary Referrals: Matteo Stein MD [Med Staff - Active Staff] - 1 Week if not improving Care Physician,No Primary [Primary Care Provider] - Print Language: Mongolian Disposition Disposition: Home, Self Care
[2024-06-29] MEDS: Ondansetron 4 MG/2 ML Vial IV (10:23)
[2024-06-29] MEDS: Ketorolac 15 MG/ML Vial IV (10:23)
[2024-06-29] MEDS: 0.9% Normal Saline (1000mL) 1,000 ML 999 ML IV (10:23)
[2024-06-29 10:28] VITALS: BP 115/80; PULSE 78; RESP 16; TEMP 37.2; O2SAT 100
[2024-06-29 10:31] LABS: Absolute Lymphocyte Count 0.71 X10^3/uL (0.83-4.51); Absolute Neutrophil Count 4.3 X10^3/uL (2.0-7.7); Basophil# 0.03 X10^3/uL; Basophil% 0.5 % (0-1); Eosinophil# 0.01 X10^3/uL; Eosinophils% 0.2 % (0-5); Hematocrit 34.1 % (37-47); Hemoglobin 11.1 g/dL (12.0-15.0); Lymphocyte # 0.71 X10^3/ul (0.83-4.51); Lymphocyte % 12.6 % (19-41); Mean Corp Hgb Conc 32.6 g/dL (32-36); Mean Corpuscular Hgb 25.7 pg (27.0-32.0); Mean Corpuscular Volume 78.9 fL (81-99); Mean Platelet Vol. 9.4 fl (6.2-12.0); Monocyte# 0.52 X10^3/uL; Monocyte% 9.3 % (0-10); NRBC Flagged by Analyzer 0 % (0-5); Neutrophil # 4.33 X10^3/uL (2.7-7.7); Platelet Count 236 K/mm3 (150-450); RBC Distribution Width CV 13.1 % (11.6-14.6); RBC Distribution Width SD 37.7 fl (35.1-43.9); Red Blood Count 4.32 M/mm3 (4.2-5.4); White Blood Count 5.6 K/mm3 (4.4-11.0)
[2024-06-29 10:54] LABS: Internal QC Validated? YES +Cl - CLEAR BKGD; Pregnancy, Serum, hCG Quali. NEGATIVE Negative
[2024-06-29 11:00] LABS: ALB/GLOB Ratio 1.1 RATIO (0.9-2.4); AST(SGOT) 9 U/L (15-37); Alanine Aminotransfer ALT/SGPT 15 U/L (13-56); Albumin, Serum 3.7 g/dL (3.2-5.0); Alkaline Phosphatase 55 U/L (45-117); Anion Gap 7 (5-15); BUN 6 mg/dL (7-18); BUN/Creat Ratio 8.4 RATIO (10-20); Calcium,Total 9.6 mg/dL (8.5-10.1); Chloride 104 mmol/L (98-107); Creatinine, Serum 0.71 mg/dL (0.55-1.02); EST Glomerular Filtration Rate 97 mL/min (>60); Est Glom Filt Rate - Afr Amer 117 mL/min (>60); Estimated Creatinine Clearance 84.14 ml/min; Globulin 3.5 g/dL (2.2-4.2); Glucose 93 mg/dL (74-106); Lipase 24 U/L (13-75); Potassium 3.5 mmol/L (3.5-5.1); Protein, Total 7.2 g/dL (6.4-8.2); Sodium Level 134 mmol/L (136-145)
[2024-06-29 11:15] VITALS: BP 101/58; PULSE 72; RESP 16; O2SAT 99
== END 2024-06-29 11:58 | disposition home or self-care (01) ==
PROVIDERS: Emergency Provider Emergency Medicine; Visit Provider Emergency Medicine
DX: U07.1 COVID-19 (principal); R11.2 Nausea with vomiting, unspecified; R19.7 Diarrhea, unspecified
CPT/HCPCS: 80053; 83690; 84703; 85025; 87631; 96361; 96374; 96375; 99283; J7030; J2405

== ENCOUNTER 2024-10-10 11:40 | Emergency (ER) | payer MEDICAID, SELFPAY ==
[2024-10-10 11:40] VITALS: BP 128/94; PULSE 66; RESP 16; TEMP 36.7; O2SAT 100; BMI 25.9
--- NOTE | 2024-10-10 12:00 | EDS_ITS ---
HPI History of Present Illness Chief Complaint: Abd Pain [facility] Medical History Headache Home Medications ?Medication ?Instructions ?Recorded ?Last Taken ?Type ondansetron 4 mg disintegrating 4 mg PO Q6H PRN nausea and 06/29/24 Unknown Rx tablet vomiting #15 tabs dicyclomine 10 mg capsule 10 mg PO TID PRN abdominal pain 10/10/24 Unknown Rx #20 caps doxycycline monohydrate 100 mg 100 mg PO BID #14 CAPSULES 10/10/24 Unknown Rx capsule Allergy/AdvReac Type Severity Reaction Status Date / Time No Known Allergies Allergy Verified 10/10/24 11:42 Surgical History Hx of section Social History Smoking Status: Current every day smoker tobacco type: cigarettes alcohol intake: never EXAM Physical Exam Const Vital Signs: 10/10/24 11:40 Temperature 98.1 F Temperature Source Oral Pulse Rate 66 Respiratory Rate 16 Blood Pressure 128/94 H Blood Pressure Mean 105 Pulse Ox 100 Oxygen Delivery Method Room Air MDM MDM MDM Narrative Medical decision making narrative: HISTORY OF PRESENT ILLNESS: 39year old female with significant past medical history of hysterectomy presents with abdominal pain. Notes began on Tuesday. Described as crampy. Not associated vomiting or diarrhea. No sick contacts. No trouble urinating. Notes vaginal discharge. Notes he sexually active with 1 partner unprotected. Denies flank pain. Notes history of 3 C-sections but denies other abdominal surgeries. REVIEW OF SYSTEMS: All other systems reviewed and are negative except as noted in the history of present illness. At least 10 review of systems reviewed and are negative except as noted in history of present illness. PHYSICAL EXAM: Nursing triage notes reviewed, Vital signs reviewed Constitutional: please see mdm HENT: MMM Eyes: Pupils equal round and reactive to light, Extraocular muscles intact Neck: No stridor, no JVD, full neck ROM Lungs: Clear to auscultation, No wheezing or rales. No increased work of breathing, no conversational dyspnea, no accessory muscle use, no nasal flaring. No respiratory distress noted Heart: Regular rate and rhythm, No murmurs, No rubs and No gallops, 2+ distal pulses (radial, femoral, posterior tibial) in all extremities Abdomen: Soft, no rigidity, rebound or guarding, no obvious peritoneal signs, no palpable pulsatile abdominal masses, no auscultated abdominal bruit : No CVAT Extremities: No edema Neuro: No focal neurological deficits, cranial nerves II through XII intact, 5/5 strength in all extremities. Intact sensation to light touch in all extremities, 2+ reflexes bilateral patella tendons. Normal gait. No ataxia. Skin: No rash or lesions noted MEDICAL DECISION MAKING: Chief Complaint: abdominal pain External records reviewed: reviewed allergies, problem list, vital signs, current medications Factors affecting care: none Social determinants of health: Sexually active with 1 partner unprotected History obtained from others: none Consults: none MDM Narrative: The pt was HDS, afebrile, non-toxic appearing. Abdominal exam was benign and not consistent with an acute surgical emergency. I considered the following differential diagnosis: AAA, small bowel obstruction, abdominal perforation, appendicitis, pancreatitis, hepatobiliary pathology (acute cholecystitis), mesenteric ischemia, abnormalities such as pyelonephritis, nephrolithiasis Patient's exam is not consistent with acute surgical process in the abdomen namely no sign of acute appendicitis, AAA, bowel obstruction, metastatic ischemia or acute cholecystitis. I did obtain labs to assess signs of systemic inflammation, signs of acute kidney, signs of hepatobiliary structure, signs of pancreatitis, UTI, , syphilis, HIV, gonorrhea, chlamydia or trichomonas. ALL IMAGES (IF OBTAINED) HAVE BEEN PERSONALLY REVIEWED AND INTERPRETED BY AGUILA Smith. CBC without leukocytosis, there is mild anemia which is similar to baseline, no thrombocytopenia BMP without evidence of significant electrolyte abnormalities, no anion gap, no acute kidney injury. LFTs show no evidence of hepatobiliary pathology. Lipase is wnl indicating no pancreatic inflammation. Urinalysis shows no evidence of urinary inflammation suggestive of UTI Urine test negative The patient received empiric treatment for gonorrhea chlamydia. Labs are otherwise reassuring. Repeat abdominal exam was benign. While I considered obtaining advanced imaging of the abdomen pelvis the patient's benign exam and reassuring vitals are reassuring. Advanced imaging not indicated at this time. I see nothing that would suggest an acute abdomen at this time. Based on history physical exam, risk factors, my suspicion for bowel obstruction, incarcerated hernia, perforated viscus, acute cholecystitis, appendicitis is very low. There is no evidence of peritonitis sepsis or toxicity at this time. I feel the patient can be managed as an outpatient with follow-up with her/his primary physician in the next 24 to 48 hours or soon as possible. Instructions have been given for the patient to return to the ED for worsening pain, anorexia, high fevers, intractable vomiting or bleeding. The patient and/or family, caregivers express understanding. The patient and/or family, caregivers agrees with the plan. Total critical care time today provided was at least 0 minutes. This excludes separately billable procedures. Critical care time (if documented) is secondary to the patient having high probability of clinically significant/life threatening deterioration in the patient's condition which required my urgent intervention. Shared decision making: I will have a discussion with the patient and or visitors regarding risk/benefits of further testing or admission. They will be made aware of of the risk/benefits inherent in this decision they will be given the opportunity to voice understanding. Impression: 1. Acute abdominal pain 2. Vaginal discharge 3. Encounter for STD testing Disposition: Discharge home Jimenez Shields DO This note was generated with [employer] dictation software. It may contain incorrect words, spelling, and punctuation that were not noted in review of the chart prior to signing. Lab Data Labs: Laboratory Results - last 24 hr 10/10/24 10/10/24 11:53 12:20 WBC 7.4 RBC 4.60 Hgb 11.6 L Hct 36.7 L MCV 79.8 L MCH 25.2 L MCHC 31.6 L RDW Std Deviation 40.1 RDW Coeff of Jayme 13.8 Plt Count 313 MPV 10.7 Immature Gran % (Auto) 0.400 Neut % (Auto) 57.7 Lymph % (Auto) 35.1 [place] % (Auto) 4.9 Eos % (Auto) 1.2 Baso % (Auto) 0.7 Absolute Neuts (auto) 4.3 Absolute Lymphs (auto) 2.59 Nucleated RBC % 0 Sodium 136 Potassium 3.5 Chloride 104 Carbon Dioxide 25.0 Anion Gap 7 BUN 6 L Creatinine 0.67 Estim Creat Clear Calc 99.35 Est GFR (MDRD) Af Amer 125 Est GFR (MDRD) Non-Af 103 BUN/Creatinine Ratio 8.9 L Glucose 89 Calcium 9.2 Total Bilirubin 0.50 AST 10 L ALT 15 Alkaline Phosphatase 49 Total Protein 8.1 Albumin 4.3 Globulin 3.8 Albumin/Globulin Ratio 1.1 Lipase 33 Urine Color Straw Urine Clarity Clear Urine pH 7.0 Ur Specific [place] 1.015 Urine Protein Negative Urine Glucose (UA) Normal Urine Ketones Negative Urine Occult Blood Negative Urine Nitrite Negative Urine Bilirubin Negative Urine Urobilinogen Normal Ur Leukocyte Esterase Negative Urine RBC 0 SEEN Urine WBC 0 SEEN Ur Squamous Epith Cells 0 SEEN Urine Bacteria 0 SEEN Urine Mucus 0 SEEN Urine Test Negative Discharge Plan Triage Chief Complaint: Abd Pain ED Provider: Jimenez Shields Dx/Rx/DC Orders Instructions: ED Abdominal Pain Unkn Cause Fem Prescriptions: New dicyclomine 10 mg capsule 10 mg PO TID PRN (Reason: abdominal pain) Qty: 20 0RF doxycycline monohydrate 100 mg capsule 100 mg PO BID Qty: 14 0RF No Action ondansetron 4 mg tablet,disintegrating 4 mg PO Q6H PRN (Reason: nausea and vomiting) Qty: 15 0RF Stand Alone Forms: ED Work / School Excuse Primary Care Provider: Zaira Purcell Referrals: Matteo Stein MD [Med Staff - Active Staff] - Activity Restrictions/Additional Instructions: Thank you for trusting us with your care today! Please refrain from any activities until results of testing are fully known. These take 1 to 2 days to result. Please refer to electronic medical record for results. Please take antibiotic as prescribed until course complete. Please take Bentyl (dicyclomine) as needed for abdominal cramping and pain. Please take Tylenol (2 pills, 650 mg), ibuprofen (2 pills, 400 mg) every 6 hours as needed for pain and fever control. Please return to the emergency department if your symptoms change or worsen. Please follow with your primary care physician for further outpatient evaluation and management. Print Language: Nepali Disposition Disposition: Home, Self Care Discharge Date/Time: 10/10/24 14:33
[2024-10-10 12:21] LABS: Absolute Lymphocyte Count 2.59 X10^3/uL (0.83-4.51); Absolute Neutrophil Count 4.3 X10^3/uL (2.0-7.7); Basophil# 0.05 X10^3/uL; Basophil% 0.7 % (0-1); Eosinophil# 0.09 X10^3/uL; Eosinophils% 1.2 % (0-5); Hematocrit 36.7 % (37-47); Hemoglobin 11.6 g/dL (12.0-15.0); Lymphocyte # 2.59 X10^3/ul (0.83-4.51); Lymphocyte % 35.1 % (19-41); Mean Corp Hgb Conc 31.6 g/dL (32-36); Mean Corpuscular Hgb 25.2 pg (27.0-32.0); Mean Corpuscular Volume 79.8 fL (81-99); Mean Platelet Vol. 10.7 fl (6.2-12.0); Monocyte# 0.36 X10^3/uL; Monocyte% 4.9 % (0-10); NRBC Flagged by Analyzer 0 % (0-5); Neutrophil # 4.25 X10^3/uL (2.7-7.7); Neutrophil % 57.7 % (47-70); Platelet Count 313 K/mm3 (150-450); RBC Distribution Width CV 13.8 % (11.6-14.6); RBC Distribution Width SD 40.1 fl (35.1-43.9); White Blood Count 7.4 K/mm3 (4.4-11.0)
[2024-10-10 12:30] LABS: Bacteria 0 SEEN /hpf (None Seen); Mucous, Urine 0 SEEN /hpf (<or=2+); Red Blood Cells-Urine 0 SEEN /hpf (0-5); Squamous Epithelial Cells - UA 0 SEEN /hpf (5-10); White Blood Cells 0 SEEN /hpf (0-5)
[2024-10-10] MEDS: Dicyclomine 10 MG Capsule 20 MG PO (12:31)
[2024-10-10 12:37] LABS: Color, Urine Straw (Yellow); Glucose, Dipstick Normal (Normal); Ketone-Dipstick Negative (Negative); Leukocyte Esterase-Dipstick Negative /ul (Negative); Nitrite-Dipstick Negative (Negative); Occult Blood-Urine Negative /ul (Negative); Protein-Dipstick Negative (Negative); Specific Gravity, Urine 1.015 (1.002-1.030); Urine Bilirubin Dipstick Negative (Negative); Urine Clarity Clear (Clear); Urine Urobilinogen Normal (Normal)
[2024-10-10 12:39] LABS: ALB/GLOB Ratio 1.1 RATIO (0.9-2.4); AST(SGOT) 10 U/L (15-37); Alanine Aminotransfer ALT/SGPT 15 U/L (13-56); Albumin, Serum 4.3 g/dL (3.2-5.0); Alkaline Phosphatase 49 U/L (45-117); Anion Gap 7 (5-15); BUN 6 mg/dL (7-18); BUN/Creat Ratio 8.9 RATIO (10-20); Calcium,Total 9.2 mg/dL (8.5-10.1); Chloride 104 mmol/L (98-107); Creatinine, Serum 0.67 mg/dL (0.55-1.02); EST Glomerular Filtration Rate 103 mL/min (>60); Est Glom Filt Rate - Afr Amer 125 mL/min (>60); Estimated Creatinine Clearance 99.35 ml/min; Globulin 3.8 g/dL (2.2-4.2); Glucose 89 mg/dL (74-106); Lipase 33 U/L (13-75); Potassium 3.5 mmol/L (3.5-5.1); Protein, Total 8.1 g/dL (6.4-8.2); Sodium Level 136 mmol/L (136-145)
[2024-10-10 12:43] LABS: Internal QC Validated? YES +Cl - CLEAR BKGD; Pregnancy, Urine Negative Negative
[2024-10-10 12:44] LABS: Record Kit Lot#,Urine Preg 872158
[2024-10-10] MEDS: Doxycycline 100 MG CAPSULE PO (14:29)
[2024-10-10] MEDS: Ceftriaxone 500 MG Vial IM (14:29)
[2024-10-11 08:36] LABS: HIV - WCH Non-Reactive (Nonreactive); Syphilis Antibodies Non-reactive
== END 2024-10-10 14:33 | disposition home or self-care (01) ==
PROVIDERS: Emergency Provider Emergency Medicine; PCP Nurse Practitioner Family; Visit Provider Emergency Medicine
DX: R10.9 Unspecified abdominal pain (principal); N89.8 Other specified noninflammatory disorders of vagina; Z90.710 Acquired absence of both cervix and uterus; F17.210 Nicotine dependence, cigarettes, uncomplicated
CPT/HCPCS: 80053; 81001; 81025; 83690; 85025; 86703; 86780; 87210; 87491; 87591; 96372; 99283; A4216